=== PATIENT | male | born 1970 | race Caucasian/White ===

== ENCOUNTER 2022-08-08 18:05 | Emergency (ER) | payer BC, SELFPAY ==
[2022-08-08 18:44] VITALS: BP 161/92; PULSE 78; RESP 20; TEMP 37; O2SAT 97; BMI 34.2
--- NOTE | 2022-08-08 19:10 | CRLHL7_ITS ---
For Patients: As a result of the Cures Act, medical imaging exams and procedure reports are released immediately into your electronic medical record. You may view this report before your referring provider. If you have questions, please contact your health care provider. INDICATION: [place] a pop in side of back. COMPARISON: None. TECHNIQUE: Single view chest radiograph, 2 views of the right ribs. FINDINGS: Normal cardiomediastinal contours. Clear lungs. No significant pleural effusion or pneumothorax. There is a minimally displaced right lateral 10th rib fracture. No definite additional displaced fractures. IMPRESSION: Minimally displaced right lateral 10th rib fracture. Dictated by Brien Singh MD @ 08/08/2022 8:16:47 PM (Electronically Signed)
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
[2022-08-08] MEDS: KETOROLAC 30 MG/ML inj IM (19:29)
[2022-08-08 21:54] VITALS: BP 136/81; PULSE 66; RESP 20; TEMP 37
== END 2022-08-08 21:55 | disposition home or self-care (01) ==
PROVIDERS: Emergency Provider Emergency Medicine Emergency Medical Services
DX: S22.32XA Fracture of one rib, left side, initial encounter for closed fracture (principal); X58.XXXA Exposure to other specified factors, initial encounter; Y93.89 Activity, other specified; Y92.9 Unspecified place or not applicable; Y99.9 Unspecified external cause status
CPT/HCPCS: 71101; 96372; 99283; 99284; J1885